=== PATIENT | male | born 1955 | race Caucasian/White ===

== ENCOUNTER → 2024-01-21 | Outpatient (CLI) | payer MEDICARE, MEDICAID, SELFPAY ==
[2024-01-21 15:06] LABS: Collection Type, Urine Clean Catch
[2024-01-21 15:25] LABS: Bacteria,Urine 2+; Bilirubin,Urine Negative (Negative); Blood,Urine 3+ (Negative); Glucose, Urine Negative (Negative); Ketones,Urine Negative (Negative); Leukocyte Esterase,Urine Positive (Negative); Nitrite,Urine Negative (Negative); Protein,Urine 1+ (Neg - Trace); RBC,Urine 3 /hpf (0-3); Specific Gravity,Urine 1.003 (1.001-1.035); Squamous Epithelial Cell,Urine < 1 /hpf (0-5); Urobilinogen,Urine Negative mg/dL (0.0-1.0); WBC,Urine 11 /hpf (0-5)
[2024-01-21 15:29] LABS: Clarity,Urine Hazy (Clear/Hazy); Color,Urine Lt-Yellow (Lt Yel-Yel); Culture Indicated,Urine Yes
== END | disposition home or self-care (01) ==
LOC: SLAB 14:44
PROVIDERS: PCP Family Medicine; Referring Provider Family Medicine; Visit Provider Family Medicine
DX: R31.9 Hematuria, unspecified (principal)
CPT/HCPCS: 81001; 87077; 87086; 87186

== ENCOUNTER → 2024-05-16 | Outpatient (CLI) | payer MEDICARE, MEDICAID, SELFPAY ==
[2024-05-16 13:56] LABS: Collection Type, Urine Clean Catch
[2024-05-16 14:42] LABS: Bilirubin,Urine Negative (Negative); Blood,Urine 3+ (Negative); Clarity,Urine Turbid (Clear/Hazy); Color,Urine Yellow (Lt Yel-Yel); Glucose, Urine Negative (Negative); Ketones,Urine Negative (Negative); Leukocyte Esterase,Urine Positive (Negative); Nitrite,Urine Positive (Negative); PH,Urine 5.5 (5.0-7.0); Protein,Urine 1+ (Neg - Trace); RBC,Urine 394 /hpf (0-3); Specific Gravity,Urine 1.021 (1.001-1.035); Squamous Epithelial Cell,Urine < 1 /hpf (0-5); Urobilinogen,Urine Negative mg/dL (0.0-1.0); WBC,Urine 98 /hpf (0-5)
[2024-05-16 14:43] LABS: Culture Indicated,Urine Yes
== END | disposition home or self-care (01) ==
LOC: SLDO 13:51
PROVIDERS: PCP Family Medicine; Referring Provider Family Medicine; Visit Provider Family Medicine
DX: N39.0 Urinary tract infection, site not specified (principal)
CPT/HCPCS: 81001; 87077; 87086; 87186

== ENCOUNTER → 2024-08-22 | Outpatient (BNVA) | payer MEDICARE, MEDICAID, SELFPAY | END | disposition home or self-care (01) | PROVIDERS: PCP Family Medicine; Referring Provider Family Medicine; Visit Provider Urology | DX: N40.1 Benign prostatic hyperplasia with lower urinary tract symptoms (principal); N13.8 Other obstructive and reflux uropathy; R33.8 Other retention of urine; F73 Profound intellectual disabilities; F41.9 Anxiety disorder, unspecified; G25.9 Extrapyramidal and movement disorder, unspecified; Z99.3 Dependence on wheelchair | CPT/HCPCS: 99212; G0463 ==

== ENCOUNTER → 2024-09-25 | Outpatient (CLI) | payer MEDICARE, MEDICAID, SELFPAY ==
[2024-09-25 13:11] LABS: Collection Type, Urine Catheter
[2024-09-25 14:47] LABS: Bilirubin,Urine Negative (Negative); Blood,Urine 3+ (Negative); Clarity,Urine Clear (Clear/Hazy); Color,Urine Colorless (Lt Yel-Yel); Glucose, Urine Negative (Negative); Ketones,Urine Negative (Negative); Leukocyte Esterase,Urine Positive (Negative); Nitrite,Urine Negative (Negative); PH,Urine 7.0 (5.0-7.0); Protein,Urine Trace (Neg - Trace); RBC,Urine 388 /hpf (0-3); Specific Gravity,Urine 1.011 (1.001-1.035); Squamous Epithelial Cell,Urine < 1 /hpf (0-5); Urobilinogen,Urine Negative mg/dL (0.0-1.0); WBC,Urine 11 /hpf (0-5)
[2024-09-25 15:28] LABS: Culture Indicated,Urine Yes
== END | disposition home or self-care (01) ==
LOC: SLDO 12:59
PROVIDERS: Referring Provider Family Medicine; Visit Provider Family Medicine
DX: N40.1 Benign prostatic hyperplasia with lower urinary tract symptoms (principal); Z46.6 Encounter for fitting and adjustment of urinary device
CPT/HCPCS: 81001; 87077; 87086; 87186

== ENCOUNTER 2024-09-29 11:14 | Emergency (ER) | payer MEDICARE, MEDICAID, SELFPAY ==
--- NOTE | 2024-09-29 11:20 | PD.EDMALE ---
ED Male Genitalurinary RME/HPI General Chief complaint: Urogenital-Male Stated complaint: PENIS BLEEDING Time Seen by Provider: 09/29/24 11:16 Source: patient and EMS Arrival date/time: 09/29/24 11:14 Mode of arrival: EMS Limitations: no limitations RME / HPI RME / HPI Narrative: 69-year-old male who is development delayed and stays in an assisted care facility is brought in by EMS. He was brought in for blood in his Kaye catheter per EMS report. Patient reportedly removed his Kaye catheter last week and has had some blood in his new catheter since. He does not provide any history secondary to his cognitive function. He is on Eliquis. Related Data Home Medications ?Medication ?Instructions ?Recorded ?Confirmed hydroxyzine HCl 50 mg/mL 25 mg PO QID ##0 02/07/13 08/22/24 intramuscular solution loratadine 10 mg tablet 10 mg PO DAILY 09/25/22 08/22/24 lorazepam 2 mg tablet 1 mg PO BID 12/07/22 08/22/24 docusate sodium 250 mg capsule 250 mg PO QHS 08/22/24 08/22/24 Previous Rx's ?Medication ?Instructions ?Recorded apixaban 5 mg (74 tabs) tablets in 5 mg PO BID #74 tabs 10/05/22 a dose pack (Eliquis DVT-PE Treat 30D Start) Allergies Allergy/AdvReac Type Severity Reaction Status Date / Time No Known Allergies Allergy Verified 09/29/24 11:21 Review of Systems Review of Systems Systems Reviewed: All systems reviewed, normal except as documented ED Exam General Limitations: Present no limitations General appearance: Present alert and in no apparent distress Head Head exam: Present atraumatic Eye Eye exam: Present normal appearance, PERRL and EOMI ENT ENT exam: Present normal exam, normal oropharynx and mucous membranes moist Neck Neck exam: Present normal inspection, full ROM and trachea midline Chest Chest inspection: Present normal inspection and symmetric chest wall rise Respiratory Respiratory exam: Present normal lung sounds bilaterally Cardiovascular Cardiovascular exam: Present regular rate, normal rhythm and normal heart sounds Abdominal Exam Abdominal exam: Present soft and normal bowel sounds Extremities Exam Extremities exam: Present normal inspection and full ROM Back Exam Back exam: Present normal inspection and full ROM Neurological Exam Neurological exam: Present alert Skin Skin exam: Present warm, dry, intact and normal color Course Quality Measures none Orders Category Date Time Status CBC Stat Lab 09/29/24 11:38 Completed CMP [Comprehensive Metabolic Panel] Stat Lab 09/29/24 11:38 Completed Lipase Stat Lab 09/29/24 11:38 Completed UA, C/S IF [Urinalysis, C/S if Indicated] Stat Lab 09/29/24 12:27 Completed Vital Signs Vital signs: Vital Signs Temperature 97.6 F 09/29/24 11:27 Respiratory Rate 16 09/29/24 11:27 Blood Pressure 111/58 L 09/29/24 11:27 Pulse Oximetry (%) 100 09/29/24 11:27 Oxygen Delivery Method Room Air 09/29/24 11:27 Urogenital - Male MDM Narrative MDM Narrative:: 69-year-old male who is development delayed and stays in an assisted care facility is brought in by EMS. He was brought in for blood in his Kaye catheter per EMS report. Patient reportedly removed his Kaye catheter last week and has had some blood in his new catheter since. He does not provide any history secondary to his cognitive function. He is on Eliquis. On exam patient is nontoxic-appearing and in no visible signs distress. Vital signs are stable. Lung tones are clear bilaterally. Abdomen is soft and supple. No blood was noted in his urine bag or at the meatus. His CBC, CMP, urinalysis unremarkable. His caregiver arrived at a later time and states there is an issue with his Kaye as it has been leaking. They states he is filling his diaper with urine. We will exchange his Kaye here. Patient will be discharged in the ER. He may return here as needed for any worsening or emergent changes. Patient data External records reviewed:: EMS form and [facility] records Clinical information provided by:: EMS and ultrasound supervisor Social determinants that could affect healthcare access:: mental health Patient has the following chronic illnesses:: Development delayed, BPH How is presenting disease/condition affected by chronic disease/condition?: exacerbated by Evaluation data The following diagnostics were reviewed and interpreted by me:: lab results (CBC, CMP, urinalysis are unremarkable) Lab and/or radiology exams considered but not ordered:: n/a Interpretation Summary: Workup was unremarkable Medications / Prescriptions Medications or Prescriptions considered but not ordered:: n/a Medication administrations:: n/a Consultations Consultation(s) initiated? (list below): No Diagnosis Urogenital Male Differential Diagnosis: urinary tract infection, urethritis and acute retention of urine Most likely diagnosis given after review of the tests above:: Kaye catheter check Admission Indicated Admission indicated?: not indicated Admission Request Was there a request for admission?: No Disposition Plan Disposition Plan: Discharge Discharge Attestation Discharge Attestation: The patient and all family members were given an opportunity to ask questions and understood the discharge instructions. Discharge instructions specifically effects, indications for sooner follow up or return to the emergency department, and the expected course of current diagnosis. Patient condition: Stable Discharge Plan Plan Patient Disposition: HOME (Self Care) Patient condition on transfer: Stable Prescriptions/Referrals Prescriptions/Med Rec: No Action docusate sodium 250 mg capsule 250 mg PO QHS lorazepam 2 mg tablet 1 mg PO BID hydroxyzine HCl 50 MG/ML solution 25 mg PO QID Qty: 0 loratadine 10 mg tablet 10 mg PO DAILY Eliquis DVT-PE Treat 30D Start 5 mg (74 tabs) tablets,dose pack 5 mg PO BID Qty: 74 0RF Referrals: Owen Howell MD [Primary Care Provider] - In 1 week Problem List Clinical Impression: Kaye catheter problem Patient/Caregiver Discharge Instructions Additional Instructions: - Continue his current therapies. - Please have him follow-up with his primary doctor. - Please return to the emergency room at anytime for any worsening or emergent concerns. Print Language: Chinese Stand Alone Forms: Yandy Award Info., Patient Portal Info Letter
[2024-09-29 11:21] VITALS: BMI 23.6
[2024-09-29 11:27] VITALS: BP 111/58; RESP 16; TEMP 36.4; O2SAT 100
[2024-09-29 11:56] LABS: Basophils # (Auto) 0.0 Thou/mm3 (0.0-0.2); Basophils % (Auto) 0 % (0-2.5); Eosinophils # (Auto) 0.1 Thou/mm3 (0.0-0.5); Eosinophils % (Auto) 2 % (0-10); Hematocrit 34.8 % (41.0-53.0); Hemoglobin 12.1 g/dL (13.5-16.0); Immature Granulocytes Auto 0.02 Thou/mm3 (0.00-0.00); Lymphocytes # (Auto) 0.8 Thou/mm3 (1.0-4.8); Lymphocytes % (Auto) 13 % (10-50); Mean Corpuscular HGB Conc 34.8 g/dl (31.0-37.0); Mean Corpuscular Hemoglobin 30.2 pg (25.0-35.0); Mean Corpuscular Volume 87 fL (80-100); Monocytes # (Auto) 0.7 Thou/mm3 (0.0-0.8); Monocytes % (Auto) 11 % (0-12); Neutrophils # (Auto) 4.5 Thou/mm3 (1.8-7.7); Neutrophils % (Auto) 74 % (37-80); Nucleated Red Blood Cell # 0.00 Thou/mm3 (0.00-0.00); Nucleated Red Blood Cell % 0 /100 WBC (0); Platelet Count 109 Thou/mm3 (140-440); RDW Standard Deviation 44.3 fL (35.1-43.9); Red Blood Count 4.01 Miln/mm3 (4.50-5.90); White Blood Count 6.1 Thou/mm3 (3.8-10.6)
[2024-09-29 12:08] LABS: Alanine Aminotransferase 17 U/L (10-49); Albumin, Serum 3.4 gm/dL (3.4-4.8); Albumin/Globulin Ratio 1.4 (1.2-2.2); Alkaline Phosphatase 78 U/L (46-116); Anion Gap 7 (7-16); Aspartate Amino Transferase 19 U/L (0-34); BUN/Creatinine Ratio 16 Ratio (12-20); Bilirubin,Total 0.7 mg/dL (0.3-1.2); Blood Urea Nitrogen 13 mg/dL (9-23); Calcium 8.3 mg/dL (8.3-10.6); Calcium (Corrected) 8.8 mg/dL (8.5-10.1); Carbon Dioxide 28.5 mMol/L (20.0-31.0); Chloride 107 mMol/L (98-107); Creatinine (Component) 0.8 mg/dL (0.6-1.3); Estimated Creatinine Clearance 80.9 mL/min (>60); Globulin 2.5 gm/dL (2.3-3.5); Glucose 115 mg/dL (74-106); Lipase 24 U/L (12-53); Osmolality,Calculated 284 (275-295); Potassium 3.9 mMol/L (3.4-5.1); Sodium 142 mMol/L (136-145); Total Protein 5.9 gm/dL (5.7-8.2); eGFR > 60 See Note
[2024-09-29 12:35] LABS: Collection Type, Urine Voided; Squamous Epithelial Cell,Urine 0 /hpf (0-5)
[2024-09-29 13:00] LABS: Bilirubin,Urine Negative (Negative); Blood,Urine Negative (Negative); Clarity,Urine Clear (Clear/Hazy); Color,Urine Colorless (Lt Yel-Yel); Culture Indicated,Urine Not Indicated; Glucose, Urine Negative (Negative); Ketones,Urine Negative (Negative); Leukocyte Esterase,Urine Negative (Negative); Nitrite,Urine Negative (Negative); PH,Urine 6.5 (5.0-7.0); Protein,Urine Negative (Neg - Trace); RBC,Urine 1 /hpf (0-3); Specific Gravity,Urine 1.003 (1.001-1.035); Urobilinogen,Urine Negative mg/dL (0.0-1.0); WBC,Urine 2 /hpf (0-5)
== END 2024-09-29 13:58 | disposition home or self-care (01) ==
PROVIDERS: Physician Assistant Medical; Emergency Provider Emergency Medicine; PCP Family Medicine
DX: T83.031A Leakage of indwelling urethral catheter, initial encounter (principal); Y84.6 Urinary catheterization as the cause of abnormal reaction of the patient, or of later complication, without mention of misadventure at the time of the procedure
CPT/HCPCS: 36415; 80053; 81001; 83690; 85025; 99283

== ENCOUNTER 2024-10-08 23:11 | Emergency (ER) | payer MEDICARE, MEDICAID, SELFPAY ==
[2024-10-08 23:15] VITALS: PULSE 84; O2SAT 95; BMI 22.9
--- NOTE | 2024-10-08 23:21 | EKG_ITS ---
[facility] Test Date: 2024-10-08 Pat Name: RAFAEL TRIPATHI Department: Room: - Gender: Male Packaging Tech: : 1955 Requested By: ED Temporary Provider Order Number: [id number] Reading MD: ED Temporary Provider Measurements Intervals [place] Rate: 81 P: -11 MN: 128 QRS: -9 QRSD: 97 T: 33 QT: 374 QTc: 435 Interpretive Statements SINUS RHYTHM LEFT ATRIAL ENLARGEMENT [-0.15mV P-WAVE IN V1/V2] LOW QRS VOLTAGE IN EXTREMITY LEADS [QRS DEFLECTION < 0.5 mV IN LIMB LEADS] ANTEROLATERAL MYOCARDIAL INFARCTION , OF INDETERMINATE AGE [40+ ms Q WAVE IN I/aVL/V3-V6] Compared to ECG 10/03/2022 19:18:26 Low QRS voltage now present Myocardial infarct finding still present /store/S0/[id number].pdf
--- NOTE | 2024-10-08 23:33 | XR_ITS ---
Examination: AP chest single view TECHNIQUE: AP portable semiupright chest single view Date and time: October 08, 2024, 11:57 PM INDICATIONS: Altered mental status beginning 1600 hours today. FINDINGS: Mild prominence of ventricle. No aspiration pneumonia or pulmonary edema. Mild osteopenia IMPRESSION: No aspiration pneumonia or pulmonary edema
[2024-10-08 23:49] VITALS: BP 123/92; PULSE 80; RESP 20; TEMP 37.6; O2SAT 97
--- NOTE | 2024-10-08 23:51 | EDNOTE_ITS ---
Altered Mental Status RME/HPI General Chief Complaint: Altered Mental Status Stated Complaint: AMS Time Seen by Provider: 10/08/24 23:53 Arrival date/time: 10/08/24 23:11 Limitations: no limitations RME / HPI RME / HPI narrative: Dr. Montes De O[facility]'s Main ED Evaluation: 69yo male PAMELA from [facility] presents to the ED for a chief complaint of AMS. Per caregiver, patient is nonverbal at baseline, but appears to be less responsive than usual. Caregiver notes the patient had his bassett catheter changed earlier today and was not draining urine. Patient is currently on antibiotics. Full ROS is unobtainable due to the patient being nonverbal at baseline. Related Data Home Medications ?Medication ?Instructions ?Recorded ?Confirmed hydroxyzine HCl 50 mg/mL 25 mg PO QID ##0 02/07/13 intramuscular solution loratadine 10 mg tablet 10 mg PO DAILY 09/25/2208/10 lorazepam 2 mg tablet 1 mg PO BID 12/07/22 5 docusate sodium 250 mg capsule 250 mg PO QHS 08/22/24 08/22/24 Previous Rx's ?Medication ?Instructions ?Recorded apixaban 5 mg (74 tabs) tablets in 5 mg PO BID #74 tab s 10/05/22 a dose pack (Eliquis DVT-PE Treat 30D Start) Allergies Allergy/AdvReac Type Severity Reaction Status Date / Time No Known Allergies Allergy Verified 09/29/24 11:21 Review of Systems Review of Systems ROS Unobtainable: other (unobtainable due to the patient being nonverbal at baseline) Past Medical History Past Medical History NEUROLOGIC: Positive Neurological Disorders (Developmentally delayed) CARDIAC: Negative Cardiac Disorders or Congestive Heart Failure RESPIRATORY: Negative Chronic Obstructive Pulmonary Disease (COPD) or Asthma GASTROINTESTINAL: Negative Gastrointestinal Disorders or Hiatal Hernia GENITOURINARY: Positive Genitourinary Disorders (Chronic Bassett Catheter) and Benign Prostatic Hyperplasia; Negative Renal Disease MUSCULOSKELETAL: Negative Musculoskeletal Disorders ENDOCRINE: Negative Endocrine Disorders, Diabetes Mellitus Type 1 or Diabetes Mellitus Type 2 HEMATOLOGIC: Negative Sickle Cell Disease PSYCHO/SOCIAL: Positive Anxiety OTHER HISTORY: Negative Autoimmune Disease or Cancer Social History SMOKING STATUS: Never smoker SUBSTANCE USE: does not use ED Exam General Limitations: Present no limitations General appearance: Present alert and in no apparent distress Head Head exam: Present atraumatic Eye Eye exam: Present normal appearance, PERRL, EOMI and other (opens eyes spontaneously) ENT ENT exam: Present normal exam, normal oropharynx and mucous membranes moist Neck Neck exam: Present normal inspection, full ROM and trachea midline Chest Chest inspection: Present normal inspection and symmetric chest wall rise Respiratory Respiratory exam: Present normal lung sounds bilaterally; Absent accessory muscle use Cardiovascular Cardiovascular exam: Present regular rate, normal rhythm and normal heart sounds Abdominal Exam Abdominal exam: Present soft Extremities Exam Extremities exam: Present full ROM and other (minimal warmth to the right medial leg); Absent pedal edema Back Exam Back exam: Present normal inspection and full ROM Neurological Exam Neurological exam: Present alert, CN II-XII intact and other (nonverbal at baseline per caregiver) Skin Skin exam: Present warm, dry, intact and normal color Course Course Course Narrative: 0600: Care signed out to Dr. Meléndez (emergency physician). Past medical, surgical, social and family history reviewed. Vitals and home medications reviewed. Results and treatment plan discussed. They will assume the care of the patient at this time and will follow the patient, pending CT head, repeat BMP, and final disposition. Quality Measures none Orders Category Date Time Status Bedside COVID-19 Antigen Test NOW Care 10/08/24 23:35 Active Bedside Influenza A&B Antigen Test NOW Care 10/08/24 23:35 Completed EKG (ED ONLY) *Do not use* NOW Care 10/08/24 23:21 Completed Bassett [Urinary Catheter, Remove] ONCE Care 10/08/24 23:48 Active Bassett [Urinary Catheter] QS Care 10/08/24 23:48 Active Bassett [Urinary Catheter] QS Care 10/08/24 23:56 Active IV [Insert IV] NOW Care 10/08/24 23:[address] abdomen pelvis wo con Stat Exams 10/09/24 02:54 Taken EKG (ED Only) Stat Exams 10/08/24 23:21 Draft XR chest 1V Stat Exams 10/08/24 23:33 Taken BNP [B-Type Natriuretic Peptide] Stat Lab 10/08/24 23:55 Completed CBC Stat Lab 10/08/24 23:55 Completed CMP [Comprehensive Metabolic Panel] Stat Lab 10/08/24 23:55 Completed Lactate (Lactic Acid) Stat Lab 10/08/24 23:55 Completed Troponin I Stat Lab 10/08/24 23:55 Completed UA, C/S IF [Urinalysis, C/S if Indicated] Stat Lab 10/08/24 23:55 Completed Urine Culture Stat Lab 10/08/24 23:55 Received Sodium Chloride 0.9% 1000 ml [Ns] 1,000 ml Med 10/09/24 02:53 Discontinued IV 999 mls/hr Sodium Chloride 0.9% 1000 ml [Ns] 1,000 ml Med 10/09/24 05:16 Active IV 999 mls/hr Vital Signs Vital signs: Vital Signs Temperature 99.6 F 10/08/24 23:49 Pulse Rate 80 10/08/24 23:49 Respiratory Rate 20 10/08/24 23:49 Blood Pressure 123/92 H 10/08/24 23:49 Pulse Oximetry (%) 97 10/08/24 23:49 Oxygen Delivery Method Room Air 10/08/24 23:49 Altered Mental Status MDM Narrative MDM Narrative:: Scribe Attestation: 10/08/24 - Waleska Hawk am scribing for and in the presence of Dr. Montes De Oca. Patient data External records reviewed:: [facility] previous records (Per chart review, patient was seen here on 09/29/24 for a bassett catheter problem.) and EMS form Clinical information provided by:: cafeteria aide Social determinants that could affect healthcare access:: none Patient has the following chronic illnesses:: BPH How is presenting disease/condition affected by chronic disease/condition?: caused by Evaluation data The following diagnostics were reviewed and interpreted by me:: lab results, radiology exam(s) and EKG tracing(s) Lab and/or radiology exams considered but not ordered:: none Interpretation Summary: WBC 13.0, Creatinine 4.6, Lactic Acid normal, Troponin normal, BNP 161. UA remarkable for positive leukocyte esterase, 75 RBCs, 19 WBCs, and rare bacteria. CXR shows no cardiomegaly, no infiltrates, no pleural effusions, according to my interpretation. EKG done at 2354, NSR, rate of 81, low voltage, old Q waves laterally, normal intervals, no STEMI, according to my interpretation. Telerad Preliminary Report Draft Patient: RAFAEL TRIPATHI [facility] Record#: [id number] Birthdate: 1955 Age/Sex: 69 / M Location: [facility] Attending Dr: Ordering Physician: Date of Service: Procedure(s): Accession Number(s): cc: ~ CT scan of the abdomen and pelvis without intravenous contrast (axial sections with sagittal and coronal reformats) October 09, 2024 at 0355 hours Clinical History: Creatinine high, altered mental status. Comparison: None. Findings: The lung bases are clear. The liver, pancreas, spleen, and adrenals are unremarkable on this noncontrast study. Gallstones without evidence of acute cholecystitis. Bilateral perinephric fat stranding. Mild bilateral hydroureteronephrosis with transition point at the UVJ. No kidney or ureteral stones. No evidence of bowel obstruction. No evidence of appendicitis. There is no mesenteric or retroperitoneal adenopathy. The urinary bladder is nondistended, limited evaluation, Bassett catheter in place. Urinary bladder wall thickening. Air within the urinary bladder. Severely enlarged prostate. There is no free fluid or free air. The osseous structures are unremarkable. Impression: 1. Probable acute cystitis. 2. Severely enlarged prostate. Consider correlation with PSA. 3. Mild bilateral hydroureteronephrosis with transition point at the UVJ. Disease possibly due to chronic urinary retention. 4. Bilateral perinephric stranding, suspicious for medical renal disease. Please, correlate clinically. Report Electronically Signed By: Bladimir Aguilar 10/09/2024 5:02:59 AM Medications / Prescriptions Medications or Prescriptions considered but not ordered:: none Medication administrations:: Medication Administration History Sodium Chloride (Ns) 1,000 mls @ 999 mls/hr IV .Q1H1M ONE Stop: 10/09/24 06:16 Last Admin: 10/09/24 05:25 Dose: 999 mls/hr Documented By: FROILAN Discontinued Medications Sodium Chloride (Ns) 1,000 mls @ 999 mls/hr IV .Q1H1M ONE Stop: 10/09/24 03:53 Last Infusion: 10/09/24 04:48 Dose: Infused Documented By: Admin: 10/09/24 03:01 Dose: 999 mls/hr Documented By: FROILAN see above Consultations Consultation(s) initiated? (list below): No Diagnosis Differential diagnosis altered mental status: other (BPH, urinary retention, bassett catheter malfunction, bassett catheter dislodgement, kidney stone) Most likely diagnosis given after review of the tests above:: ARF, bilateral hydronephrosis Admission Indicated Admission indicated?: not indicated Admission Request Was there a request for admission?: No Disposition Plan Disposition Plan: other (specify) (Signed out to Dr. Meléndez at 6 AM.) Discharge Plan Prescriptions/Referrals Prescriptions/Med Rec: No Action docusate sodium 250 mg capsule 250 mg PO QHS lorazepam 2 mg tablet 1 mg PO BID hydroxyzine HCl 50 MG/ML solution 25 mg PO QID Qty: 0 loratadine 10 mg tablet 10 mg PO DAILY Eliquis DVT-PE Treat 30D Start 5 mg (74 tabs) tablets,dose pack 5 mg PO BID Qty: 74 0RF Referrals: Owen Howell MD [Primary Care Provider] - In 1 week Problem List Clinical Impression: Acute renal failure (ARF), UTI (urinary tract infection), Bilateral hydronephrosis Patient/Caregiver Discharge Instructions Print Language: Greenlandic
--- NOTE | 2024-10-08 23:57 | PC.NURSE ---
PT BIBA FROM HOME FOR WORSENING ALTERED MENTAL STATUS. CAREGIVER IS AT BEDSIDE AND STATES THAT THE PT IS MORE ALTERED THEN NORMAL AND IS HITTING THEMSELVES MORE THEN NORMAL. ON ARRIVAL TO UNIT PT DID HAVE A BERGERON CATHETHER IN PLACE AROUND 2 DAYS AGO ACCORDING TO CAREGIVER. PER DR. CROWLEY ORDER TO REMOVE CATHERTHER AND PLACE A NEW ONE. [employer] PLACED A NEW BERGERON CATH AND IS DRAINING APPROPRIATELY. AROUND 1200ML OF URINE DRAINGED. BLADDER WAS DISTENED UPON ARRIVAL. PROVIDER AT BEDSIDE ASSESSING PT. CAREGIVER AT BEDSIDE. BLOOD SUGAR WAS TAKEN 118.
[2024-10-09] VITALS (8 sets, daily range): BP systolic 93–117; BP diastolic 56–79; PULSE 58–83; RESP 17–20; TEMP 36.6–36.9; O2SAT 97–100
[2024-10-09 00:03] LABS: Collection Type, Urine Catheter; Lactate (Lactic Acid) 1.1 mMol/L (0.4-2.0); Squamous Epithelial Cell,Urine 0 /hpf (0-5)
[2024-10-09 00:10] LABS: Basophils # (Auto) 0.0 Thou/mm3 (0.0-0.2); Basophils % (Auto) 0 % (0-2.5); Eosinophils # (Auto) 0.0 Thou/mm3 (0.0-0.5); Eosinophils % (Auto) 0 % (0-10); Hematocrit 35.5 % (41.0-53.0); Hemoglobin 12.2 g/dL (13.5-16.0); Immature Granulocytes Auto 0.06 Thou/mm3 (0.00-0.00); Lymphocytes # (Auto) 0.6 Thou/mm3 (1.0-4.8); Lymphocytes % (Auto) 4 % (10-50); Mean Corpuscular HGB Conc 34.4 g/dl (31.0-37.0); Mean Corpuscular Hemoglobin 30.0 pg (25.0-35.0); Mean Corpuscular Volume 87 fL (80-100); Monocytes # (Auto) 1.3 Thou/mm3 (0.0-0.8); Monocytes % (Auto) 10 % (0-12); Neutrophils # (Auto) 11.1 Thou/mm3 (1.8-7.7); Neutrophils % (Auto) 85 % (37-80); Nucleated Red Blood Cell # 0.00 Thou/mm3 (0.00-0.00); Nucleated Red Blood Cell % 0 /100 WBC (0); Platelet Count 183 Thou/mm3 (140-440); RDW Standard Deviation 43.8 fL (35.1-43.9); Red Blood Count 4.06 Miln/mm3 (4.50-5.90); White Blood Count 13.0 Thou/mm3 (3.8-10.6)
[2024-10-09 00:14] LABS: Bacteria,Urine Rare; Bilirubin,Urine Negative (Negative); Blood,Urine 3+ (Negative); Clarity,Urine Turbid (Clear/Hazy); Color,Urine Lt-Yellow (Lt Yel-Yel); Glucose, Urine Negative (Negative); Hyaline Casts,Urine < 1 /hpf (0-1); Ketones,Urine Negative (Negative); Leukocyte Esterase,Urine Positive (Negative); Nitrite,Urine Negative (Negative); PH,Urine 5.5 (5.0-7.0); Protein,Urine Trace (Neg - Trace); RBC,Urine 75 /hpf (0-3); Specific Gravity,Urine 1.011 (1.001-1.035); Urobilinogen,Urine Negative mg/dL (0.0-1.0); WBC,Urine 19 /hpf (0-5)
[2024-10-09 00:15] LABS: Culture Indicated,Urine Yes
[2024-10-09 00:27] LABS: Alanine Aminotransferase 15 U/L (10-49); Albumin, Serum 3.6 gm/dL (3.4-4.8); Albumin/Globulin Ratio 1.3 (1.2-2.2); Alkaline Phosphatase 76 U/L (46-116); Anion Gap 12 (7-16); Aspartate Amino Transferase 19 U/L (0-34); BUN/Creatinine Ratio 17 Ratio (12-20); Bilirubin,Total 0.4 mg/dL (0.3-1.2); Blood Urea Nitrogen 76 mg/dL (9-23); Calcium 8.0 mg/dL (8.3-10.6); Calcium (Corrected) 8.3 mg/dL (8.5-10.1); Carbon Dioxide 20.5 mMol/L (20.0-31.0); Chloride 105 mMol/L (98-107); Creatinine (Component) 4.6 mg/dL (0.6-1.3); Estimated Creatinine Clearance 16.0 mL/min (>60); Globulin 2.7 gm/dL (2.3-3.5); Glucose 125 mg/dL (74-106); Osmolality,Calculated 297 (275-295); Potassium 5.0 mMol/L (3.4-5.1); Sodium 137 mMol/L (136-145); Total Protein 6.3 gm/dL (5.7-8.2); Troponin I < 0.020 ng/mL (0.0-0.045); eGFR 13 See Note
[2024-10-09 00:41] LABS: B-Type Natriuretic Peptide 161 pg/mL (0-100)
--- NOTE | 2024-10-09 01:22 | PC.NURSE ---
PT WAS TURNED AND REPOSTIONES. THE JEN WAS REPLACED.
--- NOTE | 2024-10-09 02:54 | XR_ITS ---
Examination: CT abdomen and pelvis without contrast. Coronal 3-D reconstructions. Sagittal 2-D reconstructions. Date and time of exam:October 09, 2024, 1555 hours INDICATIONS: Altered mental status, abdominal pain, renal insufficiency. Examination today with elevated creatinine CTDI: vol (mGy): 6.97 DLP: (mGycm): 421 Technique: Axial images of the abdomen have been obtained, 3 mm slice thickness Intravenous contrast material has not been administered. Low dose protocols were performed. One or more of the following dose reduction techniques were used; automated exposure control, adjustment of the mA and/or KV according to patient size, use of iterative reconstruction technique. Findings: No visualized liver or splenic lesion Gallstones No pancreatic or adrenal mass Mild hydronephrosis with wall thickening of the pelvicalyceal systems and ureters with no ureteral calculi Abundant stool in the right colon, no pericecal inflammatory change 20 mm fat-containing umbilical hernia Significant prostatomegaly, transverse dimension 6.6 cm, urinary Kaye catheter present in a contracted urinary bladder, urinary bladder wall thickening and pericystic inflammatory change Moderate lumbar spondylosis IMPRESSION: Significant prostatomegaly Cystitis and likely bilateral urinary tract infection with vesicoureteral reflux Severe cystitis pattern
[2024-10-09] MEDS: SODIUM CHLORIDE 0.9% 1000 ML 1,000 ML 999 ML IV ×4 (03:01→08:55)
--- NOTE | 2024-10-09 05:03 | PRELIM_ITS ---
CT scan of the abdomen and pelvis without intravenous contrast (axial sections with sagittal and coronal reformats) October 09, 2024 at 0355 hours Clinical History: Creatinine high, altered mental status. Comparison: None. Findings: The lung bases are clear. The liver, pancreas, spleen, and adrenals are unremarkable on this noncontrast study. Gallstones without evidence of acute cholecystitis. Bilateral perinephric fat stranding. Mild bilateral hydroureteronephrosis with transition point at the UVJ. No kidney or ureteral stones. No evidence of bowel obstruction. No evidence of appendicitis. There is no mesenteric or retroperitoneal adenopathy. The urinary bladder is nondistended, limited evaluation, Kaye catheter in place. Urinary bladder wall thickening. Air within the urinary bladder. Severely enlarged prostate. There is no free fluid or free air. The osseous structures are unremarkable. Impression: 1. Probable acute cystitis. 2. Severely enlarged prostate. Consider correlation with PSA. 3. Mild bilateral hydroureteronephrosis with transition point at the UVJ. Disease possibly due to chronic urinary retention. 4. Bilateral perinephric stranding, suspicious for medical renal disease. Please, correlate clinically. Report Electronically Signed By: Bladimir Aguilar 10/09/2024 5:02:59 AM [EST]
--- NOTE | 2024-10-09 05:44 | XR_ITS ---
Examination: CT brain head without contrast. 2-D sagittal coronal reconstructions Date and time of exam:October 09, 2024, 0622 hours INDICATIONS: Altered mental status today CTDI: vol (mGy):4.5 DLP: (mGycm):2150 Technique: Multiple CT axial sections of the brain have been obtained, 5 mm slice thickness. Contrast has not been administered. 2-D sagittal, coronal reconstructions have been obtained Low dose protocols were performed. One or more of the following dose reduction techniques were used; automated exposure control, adjustment of the mA and/or KV according to patient size, use of iterative reconstruction technique. Findings: Patient motion degrades scan image quality Ventricles are not enlarged No gross hemorrhage mass effect or midline shift IMPRESSION: Patient motion degrades scan image quality. No gross hemorrhage mass effect or midline shift
--- NOTE | 2024-10-09 07:18 | EDNOTE_ITS ---
Emergency Room Addendum Addendum Narrative: 0600: Care assumed from Dr. Quintero, the previous shift emergency physician. Past medical, surgical, social and family history reviewed. Vitals and home medications reviewed. I will assume the care of the patient at this time, pending CT head, repeat labs, and final disposition. Please refer to the emergency department record for history and examination from initial visit.?The following addendum documentation note is intended to reflect any pending information, findings, or radiology results not included in the patient?s initial chart. 0824: Repeat creatinine is 3.0, plan to order an additional 1L of IVF and repeat creatinine. 1055: Repeat creatinine is 2.5. Patient received a total of 4L NS while in the ED and Rocephin. Patient resting comfortably. We reviewed all the results, analysis, and treatment plans. Patient is amenable to discharge. Advised the patient drink plenty of fluids at home and return in 2 days to repeat creatinine level. RADIOLOGY _ Ordering Physician: Odette Quintero MD Date of Service: 10/09/24 Procedure(s): CT head/brain wo con Accession Number(s): [id number] cc: Viet Suazo MD; Odette Quintero MD; Owen Howell MD~ Examination: CT brain head without contrast. 2-D sagittal coronal reconstructions Date and time of exam:October 09, 2024, 0622 hours INDICATIONS: Altered mental status today CTDI: vol (mGy):4.5 DLP: (mGycm):2150 Technique: Multiple CT axial sections of the brain have been obtained, 5 mm slice thickness. Contrast has not been administered. 2-D sagittal, coronal reconstructions have been obtained Low dose protocols were performed. One or more of the following dose reduction techniques were used; automated exposure control, adjustment of the mA and/or KV according to patient size, use of iterative reconstruction technique. Findings: Patient motion degrades scan image quality Ventricles are not enlarged No gross hemorrhage mass effect or midline shift IMPRESSION: Patient motion degrades scan image quality. No gross hemorrhage mass effect or midline shift Dictated By: Viet Suazo MD Signed By: <Electronically signed by Viet Suazo MD in OV>10/09/24 0729
[2024-10-09 07:35] LABS: Anion Gap 9 (7-16); BUN/Creatinine Ratio 20 Ratio (12-20); Blood Urea Nitrogen 59 mg/dL (9-23); Calcium 7.4 mg/dL (8.3-10.6); Carbon Dioxide 24.2 mMol/L (20.0-31.0); Chloride 111 mMol/L (98-107); Creatinine (Component) 3.0 mg/dL (0.6-1.3); Estimated Creatinine Clearance 24.5 mL/min (>60); Glucose 98 mg/dL (74-106); Osmolality,Calculated 303 (275-295); Potassium 4.2 mMol/L (3.4-5.1); Sodium 144 mMol/L (136-145); eGFR 22 See Note
[2024-10-09] MEDS: cefTRIAXone 2 GM in SODIUM CHLORIDE 0.9% (Popper) 50 ML IV (08:13)
--- NOTE | 2024-10-09 08:26 | PC.NURSE ---
PATIENT WAS CHANGED AND REPOSITIONED FOR COMFORT. VITALS STABLE. PATIENT BERGERON CATHETER DRAINING CLEAR URINE. PATIENT CAREGIVER AILEEN AT BEDSIDE. PLAN OF CARE ONGOING
--- NOTE | 2024-10-09 08:55 | PC.NURSE ---
CONFIRMED WITH DR. WILSON THAT PATIENT NEEDS 4L OF IV FLUIDS BEFORE A THIRD REPEAT BMP.
[2024-10-09 10:17] LABS: Anion Gap 5 (7-16); BUN/Creatinine Ratio 20 Ratio (12-20); Blood Urea Nitrogen 50 mg/dL (9-23); Calcium 7.0 mg/dL (8.3-10.6); Carbon Dioxide 23.1 mMol/L (20.0-31.0); Chloride 116 mMol/L (98-107); Creatinine (Component) 2.5 mg/dL (0.6-1.3); Estimated Creatinine Clearance 29.4 mL/min (>60); Glucose 100 mg/dL (74-106); Osmolality,Calculated 300 (275-295); Potassium 4.4 mMol/L (3.4-5.1); Sodium 144 mMol/L (136-145); eGFR 27 See Note
--- NOTE | 2024-10-09 11:11 | PC.NURSE ---
PER DR. MORA PATIENT IS STABLE FOR DISCHARGE BACK TO FACILITY. PATIENT WILL NEED TO COME IN TWO DAYS TO REPEAT LABS IN THE MORNING. [employer]LE[employer] CAREGIVER AT BEDSIDE AWARE.
== END 2024-10-09 11:31 | disposition home or self-care (01) ==
PROVIDERS: Emergency Medicine; Emergency Provider Family Medicine; PCP Family Medicine
DX: N13.6 Pyonephrosis (principal); N17.9 Acute kidney failure, unspecified; N40.0 Benign prostatic hyperplasia without lower urinary tract symptoms; R41.82 Altered mental status, unspecified; R94.31 Abnormal electrocardiogram [ECG] [EKG]
CPT/HCPCS: 51702; 36415; 70450; 71045; 74176; 80048; 80053; 81001; 83605; 83880; 84484; 85025; 87086; 87400; 87811; 93005; 96361; 96365; 99284; J0696; J7030; J7050

== ENCOUNTER → 2024-10-14 | Outpatient (CLI) | payer MEDICARE, MEDICAID, SELFPAY ==
[2024-10-14 16:17] LABS: Albumin, Serum 3.5 gm/dL (3.4-4.8); Anion Gap 6 (7-16); BUN/Creatinine Ratio 20 Ratio (12-20); Blood Urea Nitrogen 20 mg/dL (9-23); Calcium 8.4 mg/dL (8.3-10.6); Calcium (Corrected) 8.8 mg/dL (8.5-10.1); Carbon Dioxide 28.8 mMol/L (20.0-31.0); Chloride 109 mMol/L (98-107); Creatinine (Component) 1.0 mg/dL (0.6-1.3); Glucose 102 mg/dL (74-106); Osmolality,Calculated 289 (275-295); Phosphorous 3.6 mg/dL (2.4-5.1); Potassium 4.3 mMol/L (3.4-5.1); Sodium 144 mMol/L (136-145); eGFR > 60 See Note
== END | disposition home or self-care (01) ==
PROVIDERS: PCP Family Medicine; Referring Provider Family Medicine; Visit Provider Family Medicine
DX: Z13.1 Encounter for screening for diabetes mellitus (principal)
CPT/HCPCS: 36415; 80069

== ENCOUNTER → 2025-02-11 | Outpatient (CLI) | payer MEDICARE, MEDICAID, SELFPAY | END | disposition home or self-care (01) | LOC: SLDO 14:54 | PROVIDERS: PCP Family Medicine; Referring Provider Family Medicine; Visit Provider Family Medicine | DX: N39.0 Urinary tract infection, site not specified (principal) | CPT/HCPCS: 87077; 87086; 87186 ==